=== PATIENT | female | born 1975 | race Caucasian/White ===

== ENCOUNTER → 2022-09-22 14:23 | Outpatient (CLI) | payer BC, SELFPAY ==
[2022-09-22 16:14] LABS: Free T3, Triiodothyronine Free 3.12 pg/mL (2.77-5.27)
[2022-09-22 16:15] LABS: Free T4, Direct Thyroxine 1.18 ng/dL (0.78-2.19); Progesterone, Total 1.45 ng/mL
[2022-09-22 16:28] LABS: Thyroid Stimulating Hormone 1.35 uIU/mL (0.47-4.68)
[2022-09-22 16:31] LABS: Estradiol, Total 160.6 pg/mL
[2022-09-23 06:19] LABS: Thyroid Peroxidase Antibodies <8 IU/mL (0-34)
[2022-09-23 20:06] LABS: Thyroglobulin Antibodies < 1.0 IU/mL (0.0-0.9)
[2022-09-29 10:32] LABS: Percent Free Testosterone 2.98 % (0.50-2.80); Testosterone Total 23.5 ng/dL (.)
== END ==
PROVIDERS: Referring Provider Family Medicine; Visit Provider Family Medicine
DX: Z95.1 Presence of aortocoronary bypass graft (principal); Z79.890 Hormone replacement therapy; R79.89 Other specified abnormal findings of blood chemistry
CPT/HCPCS: 36415; 82670; 84144; 84402; 84403; 84432; 84439; 84443; 84481; 86376; 86800

== ENCOUNTER → 2022-10-25 08:05 | Outpatient (CLI) | payer BC, SELFPAY ==
[2022-10-25 09:59] LABS: Cholesterol 208 mg/dL (140-199); Glucose 98 mg/dL (70-100); HDL Cholesterol 40 mg/dL (40-60); LDL Cholesterol Calculated 144 mg/dL (<100); Triglycerides 120 mg/dL (35-150)
[2022-10-25 10:50] LABS: Hemoglobin A1C% w Est Avg Glu 5.5 % (4.0-6.0)
[2022-10-26 07:46] LABS: Insulin Level Total 9.9 uIU/mL (2.6-24.9)
== END ==
PROVIDERS: Referring Provider Family Medicine; Visit Provider Family Medicine
DX: E78.1 Pure hyperglyceridemia (principal); E88.89 Other specified metabolic disorders; E88.81 Metabolic syndrome and other insulin resistance; E66.3 Overweight; R73.03 Prediabetes; R73.09 Other abnormal glucose; Z68.27 Body mass index [BMI] 27.0-27.9, adult
CPT/HCPCS: 36415; 80061; 82947; 83036; 83525

== ENCOUNTER → 2023-03-02 10:51 | Outpatient (CLI) | payer BC, SELFPAY ==
[2023-03-02 14:56] LABS: Estradiol, Total 143.4 pg/mL
[2023-03-08 02:36] LABS: Percent Free Testosterone 1.11 % (0.50-2.80); Testosterone Free 1.79 ng/dL (0.10-0.85); Testosterone Total 161.6 ng/dL (.)
== END ==
PROVIDERS: PCP Family Medicine; Referring Provider Family Medicine; Visit Provider Family Medicine
DX: Z13.89 Encounter for screening for other disorder (principal); Z79.890 Hormone replacement therapy
CPT/HCPCS: 36415; 82670; 84144; 84402; 84403

== ENCOUNTER → 2023-05-10 09:41 | Outpatient (CLI) | payer BC, SELFPAY ==
[2023-05-10 12:35] LABS: Progesterone, Total 8.34 ng/mL
[2023-05-10 12:50] LABS: Estradiol, Total 260.2 pg/mL
[2023-05-15 07:36] LABS: Percent Free Testosterone 1.52 % (0.50-2.80); Testosterone Free 0.81 ng/dL (0.10-0.85); Testosterone Total 53.4 ng/dL (.)
== END ==
PROVIDERS: PCP Internal Medicine; Referring Provider Family Medicine; Visit Provider Family Medicine
DX: N95.1 Menopausal and female climacteric states (principal); Z79.890 Hormone replacement therapy
CPT/HCPCS: 36415; 82670; 84144; 84402; 84403